=== PATIENT | male | born 1935 | race Caucasian/White ===

== ENCOUNTER → 2018-12-04 08:48 | Outpatient (CLI) | payer MEDICARE, SELFPAY ==
--- NOTE | 2018-12-04 09:45 | PET_ITS ---
EXAMINATION: FDG PET CT INDICATIONS: An 82-year-old male with reported history of pulmonary nodularity. COMPARISON EXAMINATION: None available. INDEX LESION SIZE SUV INTERPRETATION Mediastinum, bilateral thoracic perihilum 37.1 mm largest (frame 224) 5.3 (max) Fulfills quantitative criteria for viable neoplasm, histopathologic analysis is recommended NON-INDEX LESION SIZE SUV INTERPRETATION Right lower anterior lung field, linear 2.1 Quantitative criteria for viable neoplasm are not fulfilled TECHNIQUE: Following the intravenous administration of 17 mCi of F-18 deoxyglucose via the left antecubital fossa, multiplanar image acquisitions of the neck, chest, abdomen and pelvis to level of mid thigh, obtained at one hour post radiopharmaceutical administration contemporaneously interpreted with the current CT of the neck, chest, abdomen and pelvis to level of mid thigh, dated 12/04/18 via coregistration reveal: HEIGHT: 67 inches. WEIGHT: 150 lbs. FINDINGS: 1. Multifocal increased glucose metabolism is defined in the carinal, subcarinal mediastinum and bilateral thoracic perihilum generating a calculated maximum standard uptake value of 5.3. The maximal axial diameter of the largest individual hypermetabolic soft tissue density on review of CT of the chest dated 12/04/18 is 37.1 mm (AP). 2. Linear enhanced FDG concentration is noted in the right lower anterior lung field anteriorly generating a calculated maximum standard uptake value of 2.1. 3. Normal physiologic distribution of the radiopharmaceutical is apparent in the hepatic (2.5) and splenic parenchyma, both renal units, bladder and visualized intestinal tract. There is uniform distribution of the radiopharmaceutical concentration defined in the visualized cerebellar hemispheres and cerebral cortical structures.? Diffuse intestinal tract activity is noted throughout all four quadrants of the abdominal-pelvic retroperitoneum, mesentery consistent with normal physiologic distribution of the radiopharmaceutical. Pertinent CT findings are as follows. CHEST: Emphysematous change is noted in the bilateral upper-mid lung zones. An additional parenchymal density defined in the right upper lung field without evidence of calcification is non-glucose avid. Atherosclerotic calcification is defined in the thoracic aorta without evidence of dilatation, aneurysm formation. Coronary arterial calcification is observed. There is evidence of prior median sternotomy. Dense calcification appears evident in the region of the right hemidiaphragm. A right hemithorax pleural effusion localized anteriorly is ametabolic. A calcified density in the visualized right lower posteromedial lung zone reveals no evidence of increased glucose metabolism. ABDOMEN AND PELVIS: Calcified granuloma formation is noted within the hepatic and splenic parenchyma. Atherosclerotic calcification is defined in the abdominal aorta without evidence of dilatation, aneurysm formation. Pelvic arterial calcification is observed. A fat-containing left inguinal hernia is noted. Postsurgical changes are defined in the right abdomen. SKELETAL: Degenerative changes defined in the cervical, thoracic and lumbar spine demonstrate no evidence for glucose hypermetabolism. Diffuse demineralization is demonstrated. PET/PET/CT Tumor Base -Thigh Init IMPRESSION: 1. Increased glucose concentration observed in the mediastinal structures and bilateral thoracic perihilum fulfills quantitative criteria for viable neoplasm. Histopathologic analysis is recommended. (Linnea et al, Journal of Clinical Oncology 16:2142, 1998). 2. Facilitated radiopharmaceutical concentration noted in the right lower anterior lung field, linear in presentation does not fulfill quantitative criteria for viable neoplasm. ([place] et al, Annals of Internal Medicine, 138:724, 2003). Electronic Signature Guero Hunter D.O. Electronically Signed: Guero Hunter DO at 23:42 EDT Tel , Service support ,
== END ==
DX: R91.1 Solitary pulmonary nodule (principal); R59.9 Enlarged lymph nodes, unspecified
CPT/HCPCS: 78815; A9552

== ENCOUNTER → 2019-02-06 10:27 | Outpatient (CLI) | payer MEDICARE, SELFPAY ==
[2018-12-13 14:19] VITALS: BMI 24.1
== END ==
PROVIDERS: Visit Provider Internal Medicine Critical Care Medicine
DX: Z01.818 Encounter for other preprocedural examination (principal)

== ENCOUNTER → 2019-03-02 12:55 | Outpatient (CLI) | payer MEDICARE, SELFPAY ==
[2018-12-13 14:19] VITALS: BMI 24.1
--- NOTE | 2019-03-02 14:32 | PFTCOMP ---
COMPLETE PULMONARY FUNCTION TEST INTERPRETATION Brief HPI: Patient is an 83 year old male, currently under the care of myself, who presents to [facility] for complete pulmonary function tests secondary to diagnosis of dyspnea. Respiratory therapist reports good effort and reproducible results. Interpretation: Forced expiration spirometry shows a severe large airways obstructive ventilatory defect with an FEV1 of 48% predicted. There is no significant bronchodilator response by strict ATS criteria. Spirograms are of good quality and plateau slowly, indicating slowly emptying areas of the lungs. The respiratory flow volume loop shows decreased expiratory flow rates at all lung volumes consistent with airway obstruction. Lung volumes by body plethysmography show a decreased total lung capacity at 3.78 L, 68% predicted. FRC and RV are elevated out of proportion. Lung volume measurements are consistent with air-trapping. Diffusion capacity by carbon monoxide is decreased at 46% predicted. The airway resistance is elevated. No previous pulmonary function tests were available for review. Impression: Irreversible severe mixed ventilatory defect with a symmetric reduction in diffusing capacity.
== END ==
PROVIDERS: Referring Provider Internal Medicine Critical Care Medicine; Visit Provider Internal Medicine Critical Care Medicine
DX: R06.09 Other forms of dyspnea (principal)
CPT/HCPCS: 94060; 94726; 94729

== ENCOUNTER → 2019-03-05 12:40 | Outpatient (CLI) | payer MEDICARE, SELFPAY ==
[2018-12-13 14:19] VITALS: BMI 24.1
[2019-03-05 13:29] VITALS: PULSE 73; PULSE 76; PULSE 77; PULSE 78; PULSE 81; PULSE 92; PULSE 97; O2SAT 92; O2SAT 93; O2SAT 94
--- NOTE | 2019-03-06 13:48 | PCM.PSN.6M ---
PSN 6 Minute Walk Test - 6 Minute Walk Test 6 Minute Walk Test: 6 Minute Walk Test PSN:6-Minute Walk Test Start: 03/05/19 13:28 Freq: Status: Active Protocol: RESP.6MINW Document 03/05/19 13:29 ALMA (Rec: 03/05/19 13:32 ALMA [id number]) 6 Minute Walk Test Date Performed 03/05/19 Time Performed 12:45 Height 5 ft 8 in Weight: 155 lb Weight in Pounds 155.[address]: Max Dominique Assistive device used: None Pre-test Oxygen Delivery Method Room Air Pulse Ox (%) 92 Pulse Rate (60-100 beats/min) 73 Dyspnea Donavan Scale (0-10) 0 Exertion Donavan Scale (6-20) 6 1st minute Oxygen Delivery Method Room Air Pulse Ox (%) 93 Pulse Rate (60-100 beats/min) 76 2nd minute Oxygen Delivery Method Room Air Pulse Ox (%) 92 Pulse Rate (60-100 beats/min) 78 3rd minute Oxygen Delivery Method Room Air Pulse Ox (%) 92 Pulse Rate (60-100 beats/min) 81 4th minute Oxygen Delivery Method Room Air Pulse Ox (%) 93 Pulse Rate (60-100 beats/min) 92 5th minute Oxygen Delivery Method Room Air Pulse Ox (%) 93 Pulse Rate (60-100 beats/min) 97 6th minute Oxygen Delivery Method Room Air Pulse Ox (%) 92 Pulse Rate (60-100 beats/min) 97 Dyspnea Donavan Scale (0-10) 2 Exertion Donavan Scale (6-20) 14 Post-test Oxygen Delivery Method Room Air Pulse Ox (%) 94 Pulse Rate (60-100 beats/min) 77 Full Laps Walked 15 Partial Lap, Number of Tiles Walked 0 Total Distance Walked (ft) 885 - Interpretation Interpretation: The patient ambulated 885 feet over the course of 6 minutes beginning on room air without assistive devices or breaks. Pretesting oxygen saturation was noted to be 92% on room air. With ambulation, the davian oxygen saturation was 92%. There was no significant exertional oxygen desaturation. - Recommendations Recommendations: There is no indication for the use of supplemental oxygen at this time.
== END ==
PROVIDERS: Referring Provider Internal Medicine Critical Care Medicine; Visit Provider Internal Medicine Critical Care Medicine
DX: R06.09 Other forms of dyspnea (principal)
CPT/HCPCS: 94618

== ENCOUNTER → 2019-03-12 14:22 | Outpatient (CLI) | payer MEDICARE, SELFPAY ==
[2018-12-13 14:19] VITALS: BMI 24.1
--- NOTE | 2019-03-12 14:25 | CT_ITS ---
STUDY: CTA CHEST REASON FOR EXAM: Male, [address] RADIATION DOSAGE (If Supplied By Facility): CTDIvol = ( 17.27 ) mGy, DLP = ( 295.41 ) mGycm TECHNIQUE: The examination was performed with the intravenous administration of 75 IV Isovue 370. Post-processing of the angiographic images was performed, with multiplanar reformation and 3D reconstruction. Individualized dose optimization techniques were used for this CT. COMPARISON: PET/CT December 04, 2018 FINDINGS: Normal enhancement of the main pulmonary artery and right and left pulmonary arteries. Normal enhancement of the bilateral peripheral pulmonary arteries. There is no demonstrated pulmonary embolism. Normal thoracic aorta and visualized great vessels. There is no demonstrated aortic dissection. The heart is enlarged. Coronary artery calcifications are present. Mediastinal lymphadenopathy is present. A subcarinal lymph node conglomerate measures 2.7 cm in diameter. Another patient portal representative node is in the AP window measuring 1.9 cm. Left hilar lymphadenopathy is present. Normal visualized trachea and bronchi. The lungs are well expanded. Severe emphysema is present. There is a left upper lobe 7 mm nodule, series 4 image 46. There is a left upper lobe 4 mm nodule, series 4 image 35. Areas of scarring are present. There is a right upper lobe 5 mm nodule versus scar, series 4 image 36. There is a right upper lobe 7 mm nodule, series 4 image 49. There is a right anterior lung base consolidation. Normal pleura. Normal chest wall structures. Normal osseous structures. Normal visualized upper abdomen. Severe emphysema. Cardiomegaly. Coronary artery calcifications. CT/CTA Chest W/WO Contrast IMPRESSION: No evidence of pulmonary embolus although pulmonary arterial opacification is suboptimal for detection. Lymphadenopathy as well as pulmonary nodules described above, consistent in appearance with neoplasm. Clinical correlation is recommended. Electronically Signed: Tito Carlton, at 20:07 EDT Tel , Service support ,
== END ==
PROVIDERS: Referring Provider Internal Medicine Critical Care Medicine; Visit Provider Internal Medicine Critical Care Medicine
DX: R91.8 Other nonspecific abnormal finding of lung field (principal)
CPT/HCPCS: 71275; Q9967

== ENCOUNTER → 2019-07-02 14:42 | Outpatient (CLI) | payer MEDICARE, SELFPAY ==
[2018-12-13 14:19] VITALS: BMI 24.1
--- NOTE | 2019-07-02 14:45 | CT_ITS ---
STUDY: CT CHEST WITH CONTRAST REASON FOR EXAM: Male, 83 years old. Lung nodule. RADIATION DOSAGE (If Supplied By Facility): CTDIvol = ( 12.15 ) mGy, DLP = ( 967.28 ) mGycm TECHNIQUE: Transaxial imaging was performed following intravenous administration of Oral and amp; IV Readi-CAT and amp; 100mL Isovue-370. Multiplanar coronal and sagittal images were reformatted. Individualized dose optimization techniques were used for this CT. COMPARISON: Comparison is made with prior examination March 12, 2019. FINDINGS: Stable 7 mm noncalcified nodule in the left upper lobe laterally as seen on axial image #37. Stable 5 mm noncalcified nodule in the right upper lobe as seen on axial image #33. Hyperinflation. Diffuse emphysematous changes with bullous formation in both upper lobes worse on the right side. Slight improvement in the dense consolidation in the anterior aspect of the right lower lobe with loculated pleural effusion. This has improved as well. Dense pleural calcific plaque in the right lung base. Normal heart and pericardium. Multiple lymph nodes are seen within the mediastinum. The largest measures 1.5 cm and is in the region of the aortopulmonary window. There is also evidence of a subcarinal soft tissue density measuring 3 cm x 2.4 cm. Persistent right hilar adenopathy although this has decreased in size as compared to prior study. Normal enhanced pulmonary arteries. Normal aorta arch and descending thoracic aorta. There is demineralization of the thoracic spine. Stable 1.4 cm x 2.3 cm hypodense nodule in the right adrenal gland. CT/Chest WITH Contrast IMPRESSION: Essentially stable examination with slight decrease in size of the consolidation in the right lower lobe. Electronically Signed: Jaime Palencia, at 13:20 EST , Service support ,
--- NOTE | 2019-07-02 14:45 | CT_ITS ---
STUDY: CT ABDOMEN AND PELVIS WITH CONTRAST REASON FOR EXAM: Male, 83 years old. History of lung cancer. RADIATION DOSAGE (If Supplied By Facility): CTDIvol = ( 12.15 ) mGy, DLP = ( 967.28 ) mGycm TECHNIQUE: Transaxial images were obtained from the dome of the diaphragm to the symphysis pubis with oral contrast. [id number] W ORAL was administered. Sagittal and coronal images were reconstructed. Individualized dose optimization techniques were used for this CT. COMPARISON: None. FINDINGS: Infiltration in the anterior aspect of the right lower lobe with a small pleural effusion loculated at that site. There is a 2.7 cm x 3.9 cm densely calcified pleural plaque at the right lung base. Coronary artery calcification. Normal liver. Normal gallbladder and extrahepatic biliary system. There are multiple benign calcified granulomata of the spleen. Normal pancreas. There is a 1.5 cm x 2.1 cm hypodense rounded nodule in the crux of the right adrenal gland. This may represent an adrenal adenoma. Normal right kidney. Normal left kidney. Normal visualized stomach. Normal small intestine. There are multiple colonic diverticula consistent with diverticulosis. The appendix is visualized and appears normal. There is diffuse atherosclerotic calcification of the abdominal aorta and its major visceral branches, without a demonstrated aneurysm. Normal inferior vena cava. Normal retroperitoneum. Distended urinary bladder. There is enlargement of the prostate gland. It measures 4.9 cm x 6 cm. This causes indentation of the bladder base. Focal calcifications are seen along its posterior aspect. Normal abdominal wall. There is a 7 mm sclerotic focus along the anterior superior aspect of the L4 vertebrae. There is also evidence of a 4.5 mm rounded sclerotic focus in the right iliac bone posteriorly. CT/Abdomen/Pelvis WITH Contrast IMPRESSION: Infiltration in the anterior aspect of the right lower lobe with a small loculated pleural effusion. Densely calcified pleural plaque at the right lung base. Hypodense nodule in the right adrenal gland. Prostatic enlargement with indentation of the bladder base. There are 2 sclerotic foci in the right posterior iliac bone. Electronically Signed: Jaime Palencia, at 13:14 EST , Service support ,
== END ==
DX: R59.0 Localized enlarged lymph nodes (principal); Z87.891 Personal history of nicotine dependence
CPT/HCPCS: 71260; 74177; Q9967